=== PATIENT | male | born 1970 | race Hispanic/Latino ===

== ENCOUNTER 2023-10-14 15:58 | Emergency (ER) | payer BC, OTHER, SELFPAY ==
[2023-10-14] MEDS ORDERED: NA CHLORIDE 0.9% 2,000 ML ONE (16:16)
[2023-10-14 16:28] LABS: Absolute Basophils 0.1 K/uL (0-0.5); Absolute Eosinophils 0.2 K/uL (0-0.5); Absolute Lymphocytes (CBC) 1.1 K/uL (0.7-4.9); Absolute Monocytes 1.2 K/uL (0.1-1.3); Absolute Neutrophil 8.3 K/uL (1.8-8.0); Basophils % 0.8 % (0-1.3); Eosinophils % 1.9 % (0-4.4); Hemoglobin 13.7 g/dL (13.6-17.9); Lymphocytes % 9.8 % (15.3-44.8); MCH 30.5 pg (27.0-35.0); MCHC 33.4 g/dL (32.0-36.0); MCV 91.5 fL (80-100); MPV 8.2 fL (7.6-11.3); Monocytes % 11.1 % (3.3-12.3); Neutrophils % 76.4 % (41.7-73.7); Platelets 254 thou/uL (152-406); RBC Red Blood Cell Count 4.48 M/uL (4.33-5.43); Red Cell Distribution Width 13.5 % (12.1-15.2)
[2023-10-14 16:31] LABS: PT Prothrombin Time 11.9 SECONDS (9.5-12.5); Protime INR 1.08
--- NOTE | 2023-10-14 16:42 | RAD REPORT ---
EXAM DESCRIPTION: RAD - Chest Single View - 10/14/2023 4:34 pm CLINICAL HISTORY: COUGH COMPARISON: No comparisons FINDINGS: Lines: None. Lungs: No evidence of edema or pneumonia. Pleural: No significant pleural effusions or pneumothorax. Cardiac: The heart size is within normal limits. Mediastinum: Within normal limits. Bones: No acute fractures. Other: None IMPRESSION: No acute cardiopulmonary disease.
[2023-10-14 16:54] LABS: Albumin/Globulin Ratio 1.1 (1.1-1.8); Anion Gap 13.3 mEq/L (5.0-15.0); Bilirubin Direct 0.2 mg/dL (0-0.2); Bilirubin Indirect, Calculated 0.5 mg/dL (0.2-0.8); Bilirubin Total 0.7 mg/dL (0.2-1.0); Globulin 3.7 g/dL (2.3-3.5); Magnesium 2.3 mg/dL (1.6-2.4); Potassium 3.3 mEq/L (3.5-5.1); Protein, Total 7.7 g/dL (6.4-8.2); Troponin High Sensitivity 11.1 pg/mL (<58.9)
[2023-10-14 17:07] LABS: Specific Gravity < 1.005 (1.005-1.030); Urine Bilirubin NEGATIVE (Negative); Urine Blood Negative (Negative); Urine Clarity Clear (Clear); Urine Color Colorless (Yellow); Urine Glucose NEGATIVE (Negative); Urine Ketones NEGATIVE (Negative); Urine Microscopic Reflex YN NO UMIC; Urine Nitrite NEGATIVE (Negative); Urine Protein NEGATIVE (Negative); Urine Urobilinogen Normal (Normal)
[2023-10-14] MEDS ORDERED: POTASSIUM 25 MEQ EFFERV TAB ONE (18:48)
--- NOTE | 2023-10-14 18:52 | ER ---
Nurse's Notes [facility] Name: Dani Garcia Age: 53 yrs Sex: Male : 1970 Arrival Date: 10/14/2023 Time: 15:58 Bed 11 Private MD: Diagnosis: Heat exhaustion, unspecified;Heat cramp;Weakness;Hypokalemia Presentation: 10/13 15:59 Chief complaint: Patient states: he got really hot and lightheaded. pt states symptoms as6 have improved at time of triage EMS states: pt had been working outside all day and got over heated at work. Coronavirus screen: At this time, the client does not indicate any symptoms associated with coronavirus-19. Ebola Screen: No symptoms or risks identified at this time. Initial Sepsis Screen: Does the patient meet any 2 criteria? No. Patient's initial sepsis screen is negative. Does the patient have a suspected source of infection? No. Patient's initial sepsis screen is negative. Risk Assessment: Do you want to hurt yourself or someone else? Patient reports no desire to harm self or others. Onset of symptoms was October 14, 2023. Care prior to arrival: Medication(s) given: Normal saline infusion, 500 mL, IV initiated. 18 GA, in the right antecubital area, Glucose check: 130. 15:59 Method Of Arrival: EMS: [facility] as6 15:59 Acuity: ELIEZER 3 as6 Triage Assessment: 16:02 General: Appears in no apparent distress. comfortable, Behavior is calm, cooperative. as6 Pain: Denies pain. EENT: No deficits noted. No signs and/or symptoms were reported regarding the EENT system. Neuro: Level of Consciousness is awake, alert, obeys commands, Oriented to person, place, time, situation. Cardiovascular: Capillary refill < 3 seconds Patient's skin is warm and dry. Respiratory: Respiratory effort is even, unlabored, Respiratory pattern is regular, symmetrical. GI: No deficits noted. No signs and/or symptoms were reported involving the gastrointestinal system. : No deficits noted. No signs and/or symptoms were reported regarding the genitourinary system. Derm: Skin is intact, is healthy with good turgor. Musculoskeletal: Circulation, motion, and sensation intact. Historical: - Allergies: 16:02 No Known Allergies; as6 - Home Meds: 16:02 None [Active]; as6 - PMHx: 16:02 None; as6 - PSHx: 16:02 None; as6 - Immunization history:: Adult Immunizations not up to date. - Infectious Disease History:: Denies. - Social history:: Smoking status: Patient denies any tobacco usage or history of. Screenin:03 [facility] ED Fall Risk Assessment (Adult) History of falling in the last 3 months, as6 including since admission No falls in past 3 months (0 pts) Confusion or Disorientation No (0 pts) Intoxicated or Sedated No (0 pts) Impaired Gait No (0 pts) Mobility Assist Device Used No (0 pt) Altered Elimination No (0 pt) Score/Fall Risk Level 0 - 2 = Low Risk Oriented to surroundings, Maintained a safe environment, Educated pt \T\ family on fall prevention, incl call for assistance when getting out of bed, Assessed \T\ reinforced patient's understanding of fall precautions. Abuse screen: Denies threats or abuse. Denies injuries from another. Nutritional screening: No deficits noted. Tuberculosis screening: No symptoms or risk factors identified. Assessment: 18:22 Reassessment: Patient appears in no apparent distress at this time. Patient and/or as6 family updated on plan of care and expected duration. Pain level reassessed. Patient is alert, oriented x 3, equal unlabored respirations, skin warm/dry/pink. Patient states feeling better. Patient states symptoms have improved. Vital Signs: 15:59 BP 141 / 80; Pulse 93; Resp 18; Temp 98.1; Pulse Ox 97% ; Weight 108.86 kg; Height 5 as6 ft. 5 in. ; Pain 0/10; 17:00 BP 149 / 79; Pulse 93; Resp 16 S; Pulse Ox 97% on R/A; as6 18:24 BP 140 / 83; Pulse 81; Resp 16 S; Pulse Ox 96% on R/A; as6 15:59 Body Mass Index 39.94 (108.86 kg, 165.1 cm) as6 15:59 Pain Scale: Adult as6 [place] Coma Score: 18:48 Eye Response: spontaneous(4). Motor Response: obeys commands(6). Verbal Response: yuly oriented(5). Total: 15. ED Course: 15:59 Patient arrived in ED. as6 16:02 Triage completed. as6 16:02 Arm band placed on. as6 16:03 Bed in low position. Call light in reach. Side rails up X2. as6 16:05 Jamil Watson MD is Attending Physician. [facility] 16:12 Jean Pierre Salazar, ITZEL is Primary Nurse. as6 16:25 Maintain EMS IV. Dressing intact. Good blood return noted. Site clean \T\ dry. Gauge \T\ as 6 site: 18g RAC. 16:25 CPK Sent. as6 16:25 Basic Metabolic Panel Sent. as6 16:25 CBC with Diff Sent. as6 16:25 LFT's Sent. as6 16:25 Magnesium Sent. as6 16:25 Troponin HS Sent. as6 16:25 PT-INR Sent. as 16:26 NT PRO-BNP Sent. as6 16:29 EKG done, by ED staff, reviewed by Jamil Watson MD. hb 16:36 XRAY Chest (1 view) In Process Unspecified. EDMS 16:51 Urinalysis w/ reflexes Sent. as6 18:52 Natalio Aguirre MD is Referral Physician. [facility] 18:58 Provided Education on: staying hydrated . as6 18:58 No provider procedures requiring assistance completed. IV discontinued, intact, as6 bleeding controlled, No redness/swelling at site. Pressure dressing applied. Administered Medications: 16:26 Drug: NS 0.9% IV 1000 ml IV at 1 bolus Per protocol; 1000 mL bolus Route: IV; Rate: 1 as6 bolus; Site: right antecubital; 18:22 Follow up: Response: No adverse reaction; IV Status: Completed infusion; IV Intake: as6 1000ml 16:26 Drug: NS 0.9% IV 1000 ml IV at 1 bolus Per protocol; 1000 mL bolus Route: IV; Rate: 1 as6 bolus; Site: right antecubital; 18:22 Follow up: Response: No adverse reaction; IV Status: Completed infusion; IV Intake: as6 1000ml 18:22 Not Given (Other Intervention Used): ns 0.9% 1000 ml IV at 125 ml/hr continuous as6 18:57 Drug: Potassium PO Effervescent Tablet 50 mEq PO once; dissolve in 4 ounces of water or as6 juice Route: PO; 18:57 Follow up: Response: No adverse reaction as6 Medication: 16:04 VIS not applicable for this client. as6 Intake: 18:22 IV: 1000ml; Total: 1000ml. as6 18:22 IV: 1000ml; Total: 2000ml. as6 Outcome: 18:52 Discharge ordered by . yuly 18:58 Discharged to home ambulatory, as6 18:58 Condition: stable 18:58 Discharge instructions given to patient, Instructed on discharge instructions, follow up and referral plans. Demonstrated understanding of instructions, follow-up care, 18:58 Patient left the ED. as6 Signatures: Dispatcher [employer] EDJamil Elias MD MD cha Baxter, Heather, RN RN Jean Pierre Salazar RN RN as6
--- NOTE | 2023-10-14 18:52 | EDPHYS ---
Physician Documentation [facility] Name: Dani Garcai Age: 53 yrs Sex: Male : 1970 Arrival Date: 10/14/2023 Time: 15:58 Bed 11 Private MD: ED Physician Jamil Watson HPI: 10/13 18:47 This 53 yrs old Male presents to ER via EMS with complaints of Heat Exposure. yuly 18:47 GOT HOT, WEAK, OVER HEATED. Onset: The symptoms/episode began/occurred today. Severity yuly of symptoms: At their worst the symptoms were mild moderate in the emergency department the symptoms have improved mildly. The patient has not experienced similar symptoms in the past. Historical: - Allergies: 16:02 No Known Allergies; as6 - Home Meds: 16:02 None [Active]; as6 - PMHx: 16:02 None; as6 - PSHx: 16:02 None; as6 - Immunization history:: Adult Immunizations not up to date. - Infectious Disease History:: Denies. - Social history:: Smoking status: Patient denies any tobacco usage or history of. ROS: 18:48 Constitutional: Negative for fever, chills, and weight loss, Eyes: Negative for injury, yuly pain, redness, and discharge, ENT: Negative for injury, pain, and discharge, Neck: Negative for injury, pain, and swelling, Cardiovascular: Negative for chest pain, palpitations, and edema, Respiratory: Negative for shortness of breath, cough, wheezing, and pleuritic chest pain, Abdomen/GI: Negative for abdominal pain, nausea, vomiting, diarrhea, and constipation, Back: Negative for injury and pain, : Negative for injury, bleeding, discharge, and swelling, MS/Extremity: Negative for injury and deformity, Skin: Negative for injury, rash, and discoloration, Psych: Negative for depression, anxiety, suicide ideation, homicidal ideation, and hallucinations, Allergy/Immunology: Negative for hives, rash, and allergies, Endocrine: Negative for neck swelling, polydipsia, polyuria, polyphagia, and marked weight changes, Hematologic/Lymphatic: Negative for swollen nodes, abnormal bleeding, and unusual bruising, 18:48 Neuro: Positive for dizziness, weakness, Exam: 18:48 Constitutional: This is a well developed, well nourished patient who is awake, alert, yuly and in no acute distress. Head/Face: Normocephalic, atraumatic. Eyes: Pupils equal round and reactive to light, extra-ocular motions intact. Lids and lashes normal. Conjunctiva and sclera are non-icteric and not injected. Cornea within normal limits. Periorbital areas with no swelling, redness, or edema. ENT: Nares patent. No nasal discharge, no septal abnormalities noted. Tympanic membranes are normal and external auditory canals are clear. Oropharynx with no redness, swelling, or masses, exudates, or evidence of obstruction, uvula midline. Mucous membranes moist. Neck: Trachea midline, no thyromegaly or masses palpated, and no cervical lymphadenopathy. Supple, full range of motion without nuchal rigidity, or vertebral point tenderness. No Meningismus. Chest/axilla: Normal chest wall appearance and motion. Nontender with no deformity. No lesions are appreciated. Cardiovascular: Regular rate and rhythm with a normal S1 and S2. No gallops, murmurs, or rubs. Normal PMI, no JVD. No pulse deficits. Respiratory: Lungs have equal breath sounds bilaterally, clear to auscultation and percussion. No rales, rhonchi or wheezes noted. No increased work of breathing, no retractions or nasal flaring. Abdomen/GI: Soft, non-tender, with normal bowel sounds. No distension or tympany. No guarding or rebound. No evidence of tenderness throughout. Back: No spinal tenderness. No costovertebral tenderness. Full range of motion. Skin: Warm, dry with normal turgor. Normal color with no rashes, no lesions, and no evidence of cellulitis. MS/ Extremity: Pulses equal, no cyanosis. Neurovascular intact. Full, normal range of motion. Psych: Awake, alert, with orientation to person, place and time. Behavior, mood, and affect are within normal limits. 18:48 Neuro: Orientation: is normal, appropriate for stated age, no acute changes, Mentation: is normal, appropriate for stated age, no acute changes, Memory: is normal, appropriate for stated age, no acute changes, Cranial nerves: grossly normal, is grossly normal based on the patient's age, no acute changes, Cerebellar function: is grossly normal, is grossly normal based on the patient's age, no acute changes, Motor: moves all fours, strength is normal, strength is 5/5 in all extremities, Sensation: is normal, no obvious gross deficits, appropriate no acute changes, Gait: not tested. Babinski testing is normal, 18:50 ECG was reviewed by the Attending Physician. yuly 18:55 Musculoskeletal/extremity: ROM: intact in all extremities, full active range of motion, yuly full passive range of motion, Circulation is intact in all extremities. Sensation intact. Compartment Syndrome exam of affected extremity: is normal. Weight bearing: able to fully bear weight, DVT Exam: No signs of deep vein thrombosis. no pain, no swelling, no tenderness, negative Homans' sign noted on exam, no appreciated bluish discoloration, no erythema, no increased warmth, Vital Signs: 15:59 BP 141 / 80; Pulse 93; Resp 18; Temp 98.1; Pulse Ox 97% ; Weight 108.86 kg; Height 5 as6 ft. 5 in. ; Pain 0/10; 17:00 BP 149 / 79; Pulse 93; Resp 16 S; Pulse Ox 97% on R/A; as6 18:24 BP 140 / 83; Pulse 81; Resp 16 S; Pulse Ox 96% on R/A; as6 15:59 Body Mass Index 39.94 (108.86 kg, 165.1 cm) as6 15:59 Pain Scale: Adult as6 [place] Coma Score: 18:48 Eye Response: spontaneous(4). Motor Response: obeys commands(6). Verbal Response: yuly oriented(5). Total: 15. MDM: 16:05 Patient medically screened. yuly 18:53 Differential Diagnosis altered mental status, sepsis, flu. Data reviewed: vital signs, [facility] nurses notes, EMS record, lab test result(s), EKG, radiologic studies, plain films. Consideration of Admission/Observation Escalation of care including admission/observation considered. I considered the following discharge prescriptions or medication management in the emergency department Medications were administered in the Emergency Department. See MAR. Independent interpretation of the following test(s) in the Emergency Department EKG: See my EKG interpretation above. Test considered but Not performed: Ultrasound NO 2 D ECHO. Historians other than the Patient: EMS: EMS WELL INFORMED. Care significantly affected by the following chronic conditions: Obesity. 10/13 16:06 Order name: Basic Metabolic Panel; Complete Time: 18:42 10/13 16:06 Order name: CBC with Diff; Complete Time: 18:42 10/13 16:06 Order name: LFT's; Complete Time: 18:42 10/13 16:06 Order name: Magnesium; Complete Time: 18:42 10/13 16:06 Order name: NT PRO-BNP; Complete Time: 18:42 10/13 16:06 Order name: PT-INR; Complete Time: 18:42 10/13 16:06 Order name: Troponin HS; Complete Time: 18:42 10/13 16:06 Order name: CPK; Complete Time: 18:42 10/13 16:07 Order name: Urinalysis w/ reflexes; Complete Time: 18:42 10/13 16:06 Order name: XRAY Chest (1 view); Complete Time: 18:42 10/13 16:06 Order name: EKG; Complete Time: 16:07 10/13 16:06 Order name: Cardiac monitoring; Complete Time: 16:30 10/13 16:06 Order name: EKG - Nurse/Tech; Complete Time: 16:30 10/13 16:06 Order name: IV Saline Lock; Complete Time: 16:25 10/13 16:06 Order name: Labs collected and sent; Complete Time: 16:25 10/13 16:06 Order name: O2 Per Protocol; Complete Time: 16:25 10/13 16:06 Order name: O2 Sat Monitoring; Complete Time: 16:25 yuly EC:54 Rate is 88 beats/min. Rhythm is regular. QRS [place] is Normal. ME interval is normal. QRS yuly interval is normal. QT interval is prolonged at 493 msec. No Q waves. T waves are Inverted in leads I, aVL, V4, V5, V6. No ST changes noted. Clinical impression: NSR w/ Non-specific ST/T Changes. Interpreted by me. Reviewed by me. Administered Medications: 16: Drug: NS 0.9% IV 1000 ml IV at 1 bolus Per protocol; 1000 mL bolus Route: IV; Rate: 1 as6 bolus; Site: right antecubital; 18:22 Follow up: Response: No adverse reaction; IV Status: Completed infusion; IV Intake: as6 1000ml 16: Drug: NS 0.9% IV 1000 ml IV at 1 bolus Per protocol; 1000 mL bolus Route: IV; Rate: 1 as6 bolus; Site: right antecubital; 18:22 Follow up: Response: No adverse reaction; IV Status: Completed infusion; IV Intake: as6 1000ml 18:22 Not Given (Other Intervention Used): ns 0.9% 1000 ml IV at 125 ml/hr continuous as6 18:57 Drug: Potassium PO Effervescent Tablet 50 mEq PO once; dissolve in 4 ounces of water or as6 juice Route: PO; 18:57 Follow up: Response: No adverse reaction as6 Disposition Summary: 10/14/23 18:52 Discharge Ordered Notes: Location: Home yuly Problem: new yuly Symptoms: have improved yuly Condition: Stable yuly Diagnosis - Heat exhaustion, unspecified yuly - Heat cramp yuly - Weakness yuly - Hypokalemia yuly Followup: yuly - With: Private Physician - When: 2 - 3 days - Reason: Recheck today's complaints, Continuance of care, Re-evaluation by your physician Followup: yuly - With: Natalio Aguirre MD - When: 2 - 3 days - Reason: Recheck today's complaints, Re-evaluation by your physician Discharge Instructions: - Discharge Summary Sheet yuly - Potassium Content of Foods yuly - Weakness yuly - Fatigue yuly - Heat Exhaustion yuly - Weakness, [place] yuly - Hypokalemia yuly - Deconditioning yuly - Preventing Heat Exhaustion, Adult yuly Forms: - Medication Reconciliation Form yuly - Antibiotic Education yuly - Prescription Opioid Use yuly - Patient Portal Instructions yuly - Leadership Thank You Letter yuly Signatures: Dispatcher [employer] EDJamil Elias MD MD cha Slawson, Ashby, RN RN as6 Corrections: (The following items were deleted from the chart) 18:55 18:50 Rate is 88 beats/min. Rhythm is regular. QRS [place] is Normal. ME interval is yuly normal. QRS interval is normal. QT interval is normal. No Q waves. T waves are Inverted in leads I, aVL, V4, V5, V6. No ST changes noted. Clinical impression: NSR w/ Non-specific ST/T Changes. yuly
[2023-10-14 19:22] VITALS: BP 140/83; TEMP 98.1; O2SAT 96
--- NOTE | 2023-10-17 14:22 | EKG ---
Test Date: 2023-10-14 Test Time: 16:29:42 Ticket Maker: AKANKSHA MEASUREMENT RESULTS: Intervals: Rate: 88 CT: 180 QRSD: 90 QT: 408 QTc: 493 [place]: P: 48 CT: 180 QRS: 68 T: 197 INTERPRETIVE STATEMENTS: Normal sinus rhythm ST & T wave abnormality, consider inferolateral ischemia Prolonged QT Abnormal ECG No previous ECG available for comparison Electronically Signed On 10-17-23 14:14:25 CDT by Natalio Aguirre
== END 2023-10-14 18:58 | disposition home or self-care (01) ==
LOC: ER 15:58
DX: T67.5XXA Heat exhaustion, unspecified, initial encounter (principal); T67.2XXA Heat cramp, initial encounter; E87.6 Hypokalemia
CPT/HCPCS: 96361; 93005; 85025; 80048; 36415; 83735; 82550; 85610; 80076; 81003; 84484; 83880; 71045; 96360; 99284; J7030